=== PATIENT | male | born 1940 | race Caucasian/White ===

== ENCOUNTER 2017-08-09 17:23 | Emergency (ER) | payer MEDICARE, OTHER ==
[2017-08-09] MEDS ORDERED: PROPARACAINE 0.5% OPHTH DROPS 15 ML EACHEYE STA (18:01)
--- NOTE | 2017-08-09 18:01 | ED Physician Documentation ---
PD HPI OPHTHO - Stated complaint Stated Complaint: SPLINTER IN L EYELID - Chief complaint Chief Complaint: Wound - History obtained from History obtained from: Patient - History of Present Illness Timing - onset: Today Timing - details: Abrupt onset (he was grinding metal and a small piece hit lower eyelid, and he feels a small bump in eyelid (not eye itself) and sees a small black spot. Concerned about a splinter.) Location: Left Associated symptoms: FB sensation (of edge of lower eyelid.) Similar symptoms before: Has not had sx before Recently seen: Not recently seen Review of Systems Constitutional: denies: Fever, Chills Eyes: denies: Loss of vision, Decreased vision, Photophobia, Irritation PD PAST MEDICAL HISTORY - Past Medical History Past Medical History: No Cardiovascular: Coronary artery disease Respiratory: None Neuro: None Endocrine/Autoimmune: None GI: Colon polyps : Benign prostate hypertrophy Derm: None - Past Surgical History General: Appendectomy Ortho: Rotator cuff repair, Arthroscopic surgery Cardiovascular: CABG, Coronary stent - Present Medications Home Medications: Ambulatory Orders Medication Instructions Recorded Confirmed Clopidogrel [Plavix] 1 tab PO DAILY 08/09/17 08/09/17 Ezetimibe [Zetia] 1 tab PO DAILY 08/09/17 08/09/17 Finasteride 1 tab PO DAILY 08/09/17 08/09/17 Metoprolol Succinate [Toprol Xl] 1 tab PO DAILY 08/09/17 08/09/17 Pravastatin Sodium 1 tab PO DAILY 08/09/17 08/09/17 Tamsulosin [Flomax] 1 cap PO DAILY 08/09/17 08/09/17 - Allergies Allergies/Adverse Reactions: Allergies Allergy/AdvReac Type Severity Reaction Status Date / Time No Known Drug Allergies Allergy Verified 08/09/17 17:37 - Social History Does the pt smoke?: No Smoking Status: Former smoker Does the pt drink ETOH?: Yes Does the pt have substance abuse?: No - Immunizations Immunizations are current?: No Immunizations: TDAP >10years/unknown - POLST Patient has POLST: No PD ED PE NORMAL - Vitals Vital signs reviewed: Yes - General General: Alert and oriented X 3, No acute distress, Well developed/nourished PD ED PE EXPANDED - Eyes Eyes: PERRL, EOMI, Eyelid injury (there is small point of black/purple color with slightly raised bump feeling just 1-2 mm size in cnetral lower lid outer aspect below the lid margin. No FB in the conjunctival area itself. ) Results - Vitals Vitals: Oxygen O2 Source Room air PD MEDICAL DECISION MAKING - ED course Complexity details: considered differential (there was a small bump with dark under the skin of lower eyelid. Could be focal point hematoma from impact. Did not see break in skin per se. Pt concerned about small FB. So local anesth with lido and nicked the spot with point of scalpel tip. Some mild bleeding and then the colored spot gone. Did not see FB per se. I think it was a very point small hematoma. ), d/w patient Departure - Departure Disposition: 01 Home, Self Care Clinical Impression: Injury of eyelid Qualifiers: Encounter type: initial encounter Laterality: left Qualified Code(s): S09.93XA - Unspecified injury of face, initial encounter Condition: Stable Record reviewed to determine appropriate education?: Yes Instructions: ED Foreign Body Soft Tissue Removed Follow-Up: Alesia Damico MD [Primary Care Provider] - Comments: The small bump that was there may have been a very tiny blood blister from the impact or may have had a small foreign body there. It feels like it is gone at this point after unroofing the spot. Use some ointment or eyedrops to moisturize area a few times through the day. Recheck if signs of infection to the wound. Otherwise it should heal over in the next couple of days per Discharge Date/Time: 08/09/17 18:44
[2017-08-09 18:23] VITALS: BP 124/99
== END 2017-08-09 18:44 | disposition home or self-care (01) ==
LOC: ED 17:23
DX: S09.93XA Unspecified injury of face, initial encounter (principal); W22.8XXA Striking against or struck by other objects, initial encounter; R22.9 Localized swelling, mass and lump, unspecified; Z87.891 Personal history of nicotine dependence
CPT/HCPCS: 99282; 99283; J3490; 11740

== ENCOUNTER 2020-02-19 16:01 | Outpatient (CLI) | payer MEDICARE, OTHER ==
--- NOTE | 2020-02-19 17:04 | XRAY Report ---
PROCEDURE: Wrist 3 View RT INDICATIONS: UNSP INJURY OF RIGHT WRIST TECHNIQUE: 3 views of the wrist were acquired. COMPARISON: None FINDINGS: Bones: No fractures or dislocations. 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 Osteoarthritic changes also noted involving distal ra dioulnar articulation. No suspicious bony lesions. Scaphoid view: Scaphoid is intact. Soft tissues: No suspicious soft tissue calcifications. 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 No fracture or dislocation. Reviewed by: Juan Shields MD on 02/19/2020 5:02 PM PDT Approved by: Juan Shields MD on 02/19/2020 5:02 PM PDT Station ID: [id number]
== END 2020-02-19 16:02 | disposition home or self-care (01) ==
LOC: DI 16:01
PROVIDERS: ATTEND Internal Medicine
DX: M19.031 Primary osteoarthritis, right wrist (principal)

== ENCOUNTER 2020-08-23 18:48 | Emergency (ER) | payer MEDICARE, OTHER ==
--- NOTE | 2020-08-23 19:44 | ED Physician Documentation ---
History of Present Illness - Stated complaint Stated Complaint: RT FINGER LAC - Chief complaint Chief Complaint: Laceration - History obtained from History obtained from: Patient - History of Present Illness Timing: How many hours ago (3) Pain level max: 3 Pain level now: 3 - Additonal information Additional information: R index finger laceration while shucking oysters tonight. States he takes Plavix. Is continuing to have bleeding. Better with pressure, worse with movement Review of Systems Constitutional: denies: Fever PD PAST MEDICAL HISTORY - Past Medical History Past Medical History: Yes Cardiovascular: Coronary artery disease Respiratory: None Endocrine/Autoimmune: None GI: Colon polyps : Benign prostate hypertrophy Derm: None - Past Surgical History Past Surgical History: Yes General: Appendectomy Ortho: Rotator cuff repair, Arthroscopic surgery Cardiovascular: CABG, Coronary stent - Present Medications Home Medications: Ambulatory Orders Medication Instructions Recorded Confirmed Clopidogrel [Plavix] 1 tab PO DAILY 08/09/17 08/09/17 Ezetimibe [Zetia] 1 tab PO DAILY 08/09/17 08/09/17 Finasteride 1 tab PO DAILY 08/09/17 08/09/17 Metoprolol Succinate [Toprol Xl] 1 tab PO DAILY 08/09/17 08/09/17 Pravastatin Sodium 1 tab PO DAILY 08/09/17 08/09/17 Tamsulosin [Flomax] 1 cap PO DAILY 08/09/17 08/09/17 - Allergies Allergies/Adverse Reactions: Allergies Allergy/AdvReac Type Severity Reaction Status Date / Time No Known Drug Allergies Allergy Verified 08/23/20 18:51 - Social History Does the pt smoke?: No Smoking Status: Never smoker Does the pt drink ETOH?: Yes Does the pt have substance abuse?: No - Immunizations Immunizations are current?: No Immunizations: TDAP >10years/unknown - POLST Patient has POLST: No PD ED PE NORMAL - Vitals Vital signs reviewed: Yes - General General: Alert and oriented X 3, No acute distress - Derm Derm: Warm and dry - Neuro Neuro: Alert and oriented X 3 PD ED PE EXPANDED - Extremities KENNETH UE/Hands Visual: 1 - laceration (1cm, linear, NVI, no tendon or vascular injury) Results - Vitals Vitals: Vital Signs - 24 hr 08/23/20 08/23/20 08/23/20 18:51 19:25 20:11 Temperature 36.4 C L 36.8 C Heart Rate 68 60 Respiratory 19 17 19 Rate Blood Pressure 203/84 H 159/90 H O2 Saturation 99 100 Oxygen O2 Source Room air Procedures - Laceration (location) R index finger Length in cm: 1 Wound type: Linear, Superficial, Clean Neurovascular status: Sensory intact, Motor intact, Vascular intact Tendon involvement: Tendon intact Wound preparation: Irrigated copiously NS Skin layer closure: Dermabond (T ring system) Other: Patient tolerated well, No complications, Neurovascular intact, Dressing applied, Tetanus UTD PD MEDICAL DECISION MAKING - ED course Complexity details: considered differential, d/w patient ED course: Patient with a right finger laceration. This was repaired. Tolerated well. Tetanus up-to-date. Warnings of infection and instructions on wound care given at bedside. Also counseled on how to minimize scarring. Patient counseled regarding signs and symptoms for which I believe and urgent re-evaluation would be necessary. Patient with good understanding of and agreement to plan and is comfortable going home at this time This document was made in part using voice recognition software. While efforts are made to proofread this document, sound alike and grammatical errors may occur. Departure - Departure Disposition: 01 Home, Self Care Clinical Impression: Finger laceration Qualifiers: Encounter type: initial encounter Finger: index finger Damage to nail status: without damage Foreign body presence: without foreign body Laterality: right Qualified Code(s): S61.210A - Laceration without foreign body of right index finger without damage to nail, initial encounter Condition: Good Instructions: ED Laceration Hand Follow-Up: Alesia Damico MD [Primary Care Provider] - As Needed Comments: Keep the wound clean. Return if you notice redness, swelling or drainage from the wound. Do not apply ointment as this may dissolve the bandage Discharge Date/Time: 08/23/20 20:00
[2020-08-23 20:12] VITALS: BP 159/90
== END 2020-08-23 20:00 | disposition home or self-care (01) ==
LOC: ED 18:48
DX: S61.210A Laceration without foreign body of right index finger without damage to nail, initial encounter (principal); W26.0XXA Contact with knife, initial encounter; Y93.G3 Activity, cooking and baking; Z79.01 Long term (current) use of anticoagulants; I25.10 Atherosclerotic heart disease of native coronary artery without angina pectoris; Z95.1 Presence of aortocoronary bypass graft
CPT/HCPCS: 12001; 99281; 99282

== ENCOUNTER 2022-06-25 12:30 | Emergency (ER) | payer MEDICARE, OTHER ==
[2022-06-25 12:37] VITALS: BP 164/70
--- NOTE | 2022-06-25 13:54 | ED Physician Documentation ---
History of Present Illness - Stated complaint Stated Complaint: LT FINGER LAC - Chief complaint Chief Complaint: Laceration - History obtained from History obtained from: Patient - History of Present Illness Timing: Yesterday Pain level max: 0 Pain level now: 0 - Additonal information Additional information: 81-year-old male presents to the emergency department with a skin tear/laceration to the dorsum of the left index finger over the proximal phalanx occurred yesterday. Tetanus is up-to-date, last tetanus shot was 2 years ago. Patient is right-handed. He states that the wound is continuing to bleed today when he uses the finger. Nothing makes it better or worse. Patient is on Plavix. PD PAST MEDICAL HISTORY - Past Medical History Cardiovascular: Coronary artery disease Respiratory: None Endocrine/Autoimmune: None GI: Colon polyps : Benign prostate hypertrophy Derm: None - Past Surgical History Past Surgical History: Yes General: Appendectomy Ortho: Rotator cuff repair, Arthroscopic surgery Cardiovascular: CABG, Coronary stent - Present Medications Home Medications: Ambulatory Orders Medication Instructions Recorded Confirmed Clopidogrel [Plavix] 1 tab PO DAILY 08/09/17 08/09/17 Ezetimibe [Zetia] 1 tab PO DAILY 08/09/17 08/09/17 Finasteride 1 tab PO DAILY 08/09/17 08/09/17 Metoprolol Succinate [Toprol Xl] 1 tab PO DAILY 08/09/17 08/09/17 Pravastatin Sodium 1 tab PO DAILY 08/09/17 08/09/17 Tamsulosin [Flomax] 1 cap PO DAILY 08/09/17 08/09/17 - Allergies Allergies/Adverse Reactions: Allergies Allergy/AdvReac Type Severity Reaction Status Date / Time No Known Drug Allergies Allergy Verified 06/25/22 12:37 - Social History Does the pt smoke?: No Smoking Status: Never smoker Does the pt drink ETOH?: Yes Does the pt have substance abuse?: No - Immunizations Immunizations are current?: No Immunizations: TDAP >10years/unknown - POLST Patient has POLST: No PD ED PE NORMAL - Vitals Vital signs reviewed: Yes - General General: Alert and oriented X 3 - Derm Derm: Warm and dry - Extremities Extremities: Other (L index finger - 1 cm, linear skin tear to the dorsum of the proximal phalanx. Superficial. No active bleeding. Neurovascular intact. Tendon intact.) - Neuro Neuro: Alert and oriented X 3 Results - Vitals Vitals: Vital Signs - 24 hr 06/25/22 12:34 Temperature 36.4 C L Heart Rate 67 Respiratory 16 Rate Blood Pressure 164/70 H O2 Saturation 99 Oxygen O2 Source Room air PD Medical Decision Making - ED course Complexity details: considered differential, d/w patient ED course: 81-year-old male with a small skin tear to the dorsum of the left index finger. Dermabond was applied over the area. No active bleeding. No indication for suture repair. Warnings of infection and instructions on wound care given at bedside. Patient counseled regarding signs and symptoms for which I believe and urgent re-evaluation would be necessary. Patient with good understanding of and agreement to plan and is comfortable going home at this time This document was made in part using voice recognition software. While efforts are made to proofread this document, sound alike and grammatical errors may occur. Departure - Departure Disposition: 01 Home, Self Care Clinical Impression: Finger laceration Qualifiers: Encounter type: initial encounter Finger: index finger Damage to nail status: without damage Foreign body presence: without foreign body Laterality: left Qualified Code(s): S61.211A - Laceration without foreign body of left index finger without damage to nail, initial encounter Condition: Good Instructions: ED Laceration Ext Skin Glue Follow-Up: Alesia Damico MD [Primary Care Provider] - As Needed Comments: Keep the wound clean. Return for redness, swelling or drainage from the wound. Do not apply any ointment as this may dissolve the glue. The glue will fall off on its own. Discharge Date/Time: 06/25/22 14:02
== END 2022-06-25 14:02 | disposition home or self-care (01) ==
LOC: ED 12:30
DX: S61.211A Laceration without foreign body of left index finger without damage to nail, initial encounter (principal); X58.XXXA Exposure to other specified factors, initial encounter
CPT/HCPCS: 99281; 99282

== ENCOUNTER 2023-01-31 17:29 | Emergency (ER) | payer MEDICARE, OTHER ==
[2023-01-31 17:52] VITALS: BP 150/66; O2SAT 99
--- NOTE | 2023-01-31 19:07 | ED Physician Documentation ---
PD HPI UPPER EXT INJURY - Stated complaint Stated Complaint: LT ELBOW INJ - Chief complaint Chief Complaint: Laceration - History obtained from History obtained from: Patient - History of Present Illness Location: Left (82-year-old gentleman on Plavix, up-to-date on tetanus had a trip and fall in the garden today and has an abrasion on the left elbow which is persistently bleeding.) PD PAST MEDICAL HISTORY - Past Medical History Cardiovascular: Coronary artery disease Respiratory: None Endocrine/Autoimmune: None GI: Colon polyps : Benign prostate hypertrophy Derm: None - Past Surgical History Past Surgical History: Yes General: Appendectomy Ortho: Rotator cuff repair, Arthroscopic surgery Cardiovascular: CABG, Coronary stent - Present Medications Home Medications: Ambulatory Orders Medication Instructions Recorded Confirmed Clopidogrel [Plavix] 1 tab PO DAILY 08/09/17 08/09/17 Ezetimibe [Zetia] 1 tab PO DAILY 08/09/17 08/09/17 Finasteride 1 tab PO DAILY 08/09/17 08/09/17 Metoprolol Succinate [Toprol Xl] 1 tab PO DAILY 08/09/17 08/09/17 Pravastatin Sodium 1 tab PO DAILY 08/09/17 08/09/17 Tamsulosin [Flomax] 1 cap PO DAILY 08/09/17 08/09/17 - Allergies Allergies/Adverse Reactions: Allergies Allergy/AdvReac Type Severity Reaction Status Date / Time No Known Drug Allergies Allergy Verified 01/31/23 17:48 - Social History Does the pt smoke?: No Smoking Status: Never smoker Does the pt drink ETOH?: Yes Does the pt have substance abuse?: No - Immunizations Immunizations are current?: No Immunizations: TDAP >10years/unknown - POLST Patient has POLST: No PD ED PE NORMAL - Vitals Vital signs reviewed: Yes - General General: Alert and oriented X 3, No acute distress - Extremities Extremities: Other (Dime size abrasion on the left elbow with slow bleeding ooze. No limited range of motion or bony tenderness to the elbow.) - Neuro Neuro: Alert and oriented X 3, Normal speech Results - Vitals Vitals: Vital Signs - 24 hr 01/31/23 17:49 Temperature 36.6 C Heart Rate 62 Respiratory 16 Rate Blood Pressure 150/66 H O2 Saturation 99 Oxygen O2 Source Room air Procedures - General procedure General procedure: The abrasion was irrigated and then covered with Dermabond for hemostasis. Departure - Departure Disposition: Home, Self Care Clinical Impression: Abrasion of left elbow Condition: Good Record reviewed to determine appropriate education?: Yes Instructions: ED Laceration Ext Skin Glue
== END 2023-01-31 19:11 | disposition home or self-care (01) ==
LOC: ED 17:29
DX: S50.312A Abrasion of left elbow, initial encounter (principal); W01.0XXA Fall on same level from slipping, tripping and stumbling without subsequent striking against object, initial encounter; Z79.02 Long term (current) use of antithrombotics/antiplatelets
CPT/HCPCS: 99281; 99282

== ENCOUNTER 2023-02-03 19:32 | Emergency (ER) | payer MEDICARE, OTHER ==
--- NOTE | 2023-02-03 22:44 | ED Physician Documentation ---
PD HPI SKIN - Stated complaint Stated Complaint: LT ARM LAC - Chief complaint Chief Complaint: Laceration - History obtained from History obtained from: Patient - Additional information Additional information: The patient comes to the emergency department chief complaint of blood leaking from under skin glue on left arm. He states that he was seen a few days ago after sustaining an abrasion to his left forearm that would not stop bleeding. He is on Plavix and ultimately, his ED provider placed a patch of skin glue over the abrasion to help stop the bleeding. He states this has been fairly effe ctive, but notes that the edges of the glue are starting to peel back and he has had a little bit of bloody residue leaking from underneath. He just wants to know if there is anything else he can or should do. No other complaints at this time. PD PAST MEDICAL HISTORY - Past Medical History Past Medical History: Yes Cardiovascular: Coronary artery disease Respiratory: None Endocrine/Autoimmune: None GI: Colon polyps : Benign prostate hypertrophy Derm: None - Past Surgical History Past Surgical History: Yes General: Appendectomy Ortho: Rotator cuff repair, Arthroscopic surgery Cardiovascular: CABG, Coronary stent - Present Medications Home Medications: Ambulatory Orders Medication Instructions Recorded Confirmed Clopidogrel [Plavix] 1 tab PO DAILY 08/09/17 02/03/23 Ezetimibe [Zetia] 1 tab PO DAILY 08/09/17 02/03/23 Finasteride 1 tab PO DAILY 08/09/17 02/03/23 Metoprolol Succinate [Toprol Xl] 1 tab PO DAILY 08/09/17 02/03/23 Pravastatin Sodium 1 tab PO DAILY 08/09/17 02/03/23 Tamsulosin [Flomax] 1 cap PO DAILY 08/09/17 02/03/23 - Allergies Allergies/Adverse Reactions: Allergies Allergy/AdvReac Type Severity Reaction Status Date / Time No Known Drug Allergies Allergy Verified 02/03/23 19:37 - Social History Does the pt smoke?: No Smoking Status: Never smoker Does the pt drink ETOH?: Yes Does the pt have substance abuse?: No - Immunizations Immunizations are current?: Yes Immunizations: TDAP >10years/unknown - POLST Patient has POLST: No PD ED PE NORMAL - Vitals Vital signs reviewed: Yes - General General: Alert and oriented X 3, No acute distress - HEENT HEENT: Atraumatic, Moist mucous membranes - Neck Neck: Supple, no meningeal sign - Respiratory Respiratory: No respiratory distress - Derm Derm: Normal color, Warm and dry, No rash, Other (Small abrasion over dorsum of left forearm, with approximately 3 cm in diameter mostly intact patch of dried Dermabond. There is minimal bloody residue beneath the glue that has tracked to the edge of the glue, which is peeling up a little. No other wounds or skin lesions. No induration, erythema) - Extremities Extremities: No deformity - Neuro Neuro: Alert and oriented X 3 - Psych Psych: Normal mood, Normal affect Results - Vitals Vitals: Oxygen O2 Source Room air PD Medical Decision Making - ED course Complexity details: considered differential, d/w patient ED course: I discussed with the patient that it is expected that the glue will begin to peel after if he wishes he can just clip the peeling ends off with nail clippers. There is minimal bleeding occurring, but this patient seems very concerned about this and has requested a dressing to be placed over the area. We have done this, though I have discussed with the patient that he does need to allow the wound ultimately to be open areas that can actually heal. We have discussed management of the wound at home and the usual locations for follow-up and return. Departure - Departure Disposition: 01 Home, Self Care Clinical Impression: Abrasion Condition: Stable Instructions: ED Abrasion Forms: PCP List Discharge Date/Time: 02/03/23 22:50
[2023-02-04 11:00] VITALS: BP 170/60; O2SAT 100
== END 2023-02-03 22:50 | disposition home or self-care (01) ==
LOC: ED 19:32
DX: S50.812A Abrasion of left forearm, initial encounter (principal); X58.XXXA Exposure to other specified factors, initial encounter; Z79.01 Long term (current) use of anticoagulants; Z95.1 Presence of aortocoronary bypass graft
CPT/HCPCS: 99281; 99283

== ENCOUNTER 2023-05-07 12:49 | Outpatient (CLI) | payer MEDICARE, OTHER ==
--- NOTE | 2023-05-07 16:44 | XRAY Report ---
PROCEDURE: Foot 3 View LT INDICATIONS: LEFT FOOT PAIN TECHNIQUE: 3 views of the foot were acquired. COMPARISON: None. FINDINGS: Bones: No acute fractures or dislocations. No suspicious bony lesions. Mild osteoarthrosis. Plantar calcaneal enthesophyte is present. Soft tissues: No suspicious soft tissue calcifications or masses. IMPRESSION: No acute osseous abnormality. If there is clinical concern or persistent symptoms, additional imaging such as repeat radiographs or advanced imaging (e.g. CT, MRI) may be helpful for further evaluation. Reviewed by: Jalil Erazo MD on 05/07/2023 4:43 PM PST Approved by: Jalil Erazo MD on 05/07/2023 4:43 PM PST Station ID: [id number]
== END 2023-05-07 12:50 | disposition home or self-care (01) ==
LOC: DI 12:49
PROVIDERS: ATTEND Internal Medicine
DX: M79.672 Pain in left foot (principal)

== ENCOUNTER 2023-08-16 16:58 | Emergency (ER) | payer MEDICARE, OTHER ==
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
--- NOTE | 2023-08-16 17:42 | XRAY Report ---
PROCEDURE: Hand 3+V BL INDICATIONS: GLF, right pinky deformity TECHNIQUE: 3 views of the hand(s) acquired. COMPARISON: None. FINDINGS: Bones: Diffuse appearance of prominent IP and first CMC arthritic change. Soft tissues: No suspicious soft tissue calcifications or masses. IMPRESSION: Extensive arthritic changes. No visualized acute fracture or dislocation. However, occult injury cannot be excluded. Recommend mahad rt interval imaging follow-up in 7-10 days as clinically indicated for additional evaluation. Reviewed by: Elisabeth Antonio MD on 08/16/2023 5:41 PM PDT Approved by: Elisabeth Antonio MD on 08/16/2023 5:41 PM PDT Station ID: [id number]
[2023-08-16 18:28] LABS: BASOPHILS % (AUTO) 0.2 %; EOSINOPHILS % (AUTO) 0.1 %; HCT - HEMATOCRIT 41.4 % (42.0-52.0); HGB - HEMOGLOBIN 13.8 g/dL (14.0-18.0); LYMPHOCYTES % (AUTO) 6.9 %; MEAN CORPUSCULAR HGB CONC 33.3 g/dL (32.0-36.0); MEAN PLATELET VOLUME 9.9 fL (7.4-11.4); MONOCYTES # (AUTO) 0.7 10^3/uL (0.0-1.0); MONOCYTES % (AUTO) 4.8 %; NEUTROPHILS # (AUTO) 12.7 10^3/uL (1.5-6.6); NEUTROPHILS % (AUTO) 87.7 %; PLT - PLATELET COUNT 228 10^3/uL (130-450); RED BLOOD COUNT 4.45 10^6/uL (4.70-6.10); RED CELL DISTRIBUTION WIDTH 12.8 % (12.0-15.0); WHITE BLOOD COUNT 14.4 x10^3/uL (4.8-10.8)
[2023-08-16 18:50] LABS: ALBUMIN 4.4 g/dL (3.2-5.5); ALBUMIN/GLOBULIN RATIO 1.8 (1.0-2.2); BILIRUBIN,TOTAL 0.8 mg/dL (0.2-1.0); CALCIUM 9.6 mg/dL (8.5-10.3); CREATININE 0.8 mg/dL (0.6-1.3); POTASSIUM 4.1 mmol/L (3.5-4.5); TOTAL PROTEIN 6.9 g/dL (6.4-8.9)
[2023-08-16] MEDS: ACETAMINOPHEN 325 MG TABLET PO STA (18:50)
[2023-08-16] MEDS: oxyCODONE 5 MG TABLET PO STA (18:50)
[2023-08-16] MEDS: LIDOCAINE-EPINEPH-TETRACAINE 3 ML SYRINGE TOP STA (19:27)
[2023-08-16] MEDS: TRANEXAMIC ACID 1,000 MG/10 ML VIAL NAS STA (19:27)
[2023-08-16] MEDS: BUFFERED LIDOCAINE 10 ML SYRINGE SUBQ STA (19:27)
--- NOTE | 2023-08-16 20:44 | ED Physician Documentation ---
PD HPI HEAD INJURY - Stated complaint Stated Complaint: FALL/HEAD LAC/ARM LAC - Chief complaint Chief Complaint: Trauma Hd/Nk - Additional information Additional information: 83-year-old male on Plavix presents emergency department after sustaining head injury after ground-level fall. Patient says that this was strictly mechanical he lost his footing as he was walking in [place] somehow tripped and fell onto his right face. He also has deep lacerations to the top of both of his hands with significant bruising to the left volar aspect of his hand. Patient denies any loss of consciousness and denies any neck pain. After he fell and hit his head this was in [place] a bystander offered to call 911 for him but patient adamantly declined and [facility] himself back to [facility] because he did not want to present to the emergency department in [place] for further evaluation. He denies any dizziness any nausea vomiting. PD PAST MEDICAL HISTORY - Past Medical History Past Medical History: Yes Cardiovascular: Coronary artery disease Respiratory: None Endocrine/Autoimmune: None GI: Colon polyps : Benign prostate hypertrophy Derm: None - Past Surgical History Past Surgical History: Yes General: Appendectomy Ortho: Rotator cuff repair, Arthroscopic surgery Cardiovascular: CABG, Coronary stent - Present Medications Home Medications: Ambulatory Orders Medication Instructions Recorded Confirmed Clopidogrel [Plavix] 1 tab PO DAILY 08/09/17 08/16/23 Ezetimibe [Zetia] 1 tab PO DAILY 08/09/17 08/16/23 Finasteride 1 tab PO DAILY 08/09/17 08/16/23 Metoprolol Succinate [Toprol Xl] 1 tab PO DAILY 08/09/17 08/16/23 Pravastatin Sodium 1 tab PO DAILY 08/09/17 08/16/23 Tamsulosin [Flomax] 1 cap PO DAILY 08/09/17 08/16/23 oxyCODONE [Roxicodone] 5 mg PO ONCE PRN #10 tablet 08/16/23 - Allergies Allergies/Adverse Reactions: Allergies Allergy/AdvReac Type Severity Reaction Status Date / Time No Known Drug Allergies Allergy Verified 02/03/23 19:37 - Social History Does the pt smoke?: No Smoking Status: Never smoker Does the pt drink ETOH?: Yes Does the pt have substance abuse?: No - Immunizations Immunizations are current?: Yes Immunizations: TDAP >10years/unknown - POLST Patient has POLST: No PD ED PE NORMAL - Vitals Vital signs reviewed: Yes - General General: Alert and oriented X 3, Well developed/nourished - HEENT HEENT: PERRL, EOMI, Moist mucous membranes, Dentition benign, Other (right periorbital hematom) - Neck Neck: C-Spine cleared by NEXUS criteria - Cardiac Cardiac: RRR, No gallop, Strong equal pulses - Respiratory Respiratory: No respiratory distress, Clear bilaterally - Back Back: No CVA TTP, No spinal TTP - Extremities Extremities: Other - Neuro Neuro: Alert and oriented X 3, rectifier operator 2-12 intact, No motor deficit, No sensory deficit, Normal speech Eye Opening: Spontaneous Motor: Obeys Commands Verbal: Oriented GCS Score: 15 - Psych Psych: Normal mood, Normal affect - Free text exam Free text exam: Left Hand: Significant swelling and bruising to the volar aspect with multiple lacerations and large abrasion especially to the ulnar aspect of his handMeasuring about 7 to 8 cm in length. Right hand: Significant swelling and bruising to the volar aspect with small laceration to the ulnar aspect of his hand that are about 1 cm long. Results - Vitals Vitals: Vital Signs - 24 hr 08/16/23 08/16/23 08/16/23 17:36 18:00 18:05 Temperature 36.2 C L Heart Rate 80 78 78 Respiratory 16 16 20 Rate Blood Pressure 143/64 H 136/71 H 136/71 H O2 Saturation 100 97 97 08/16/23 08/16/23 08/16/23 18:30 19:00 20:15 Temperature Heart Rate 79 84 67 Respiratory 16 16 Rate Blood Pressure 153/74 H 97/53 L O2 Saturation 97 97 95 08/16/23 08/16/23 20:30 21:00 Temperature Heart Rate 51 L 66 Respiratory 20 18 Rate Blood Pressure 97/66 O2 Saturation 94 Oxygen O2 Source Room air - Labs Labs: Laboratory Tests 08/16/23 08/16/23 18:20 18:20 WBC 14.4 H RBC 4.45 L Hgb 13.8 L Hct 41.4 L MCV 93.0 MCH 31.0 MCHC 33.3 RDW 12.8 Plt Count 228 MPV 9.9 Neut # (Auto) 12.7 H Lymph # (Auto) 1.0 L Morton # (Auto) 0.7 Eos # (Auto) 0.0 Baso # (Auto) 0.0 Absolute Nucleated RBC 0.00 Nucleated RBC % 0.0 Sodium 127 L Potassium 4.1 Chloride 95 L Carbon Dioxide 25 Anion Gap 7.0 BUN 10 Creatinine 0.8 Estimated GFR (MDRD) 93 Glucose 106 H Calcium 9.6 Total Bilirubin 0.8 AST 30 ALT 25 Alkaline Phosphatase 43 Total Protein 6.9 Albumin 4.4 Globulin 2.5 Albumin/Globulin Ratio 1.8 - Rads (name of study) CT head without contrast Relevant Findings:: Final report received, EMP independent interpretation of test, Other (No intracranial hemorrhages or abnormalities) Bilateral hand x-rays Relevant Findings:: Final report received, EMP independent interpretation of test, Other (Obvious arthritic changes no dislocations no fractures.) Procedures - Laceration (location) left hand Length in cm: 8 (left volar hand) Wound type: Curved, Irregular, Flap, Superficial, Clean Neurovascular status: Sensory intact, Motor intact Tendon involvement: Tendon intact Anesthesia: LET, Lidocaine 1% Wound preparation: Hibiclens, Irrigated copiously NS, Wound explored, Multiple flaps aligned Skin layer closure: Nylon, Dermabond, Size #-0 - enter number (5-0), Sutures - enter # (6) Other: Patient tolerated well, Neurovascular intact, Dressing applied, Tetanus UTD PD Medical Decision Making - ED course ED course: 83-year-old male presents emergency department after a ground-level fall falling onto his face on concrete. X-rays of both hands are complete no acute fractures or abnormalities are visualized, CT of his head is also complete which did not reveal any intracranial hemorrhages or also any other intracranial emergencies. He does have a significant right orbital hematoma, Intraocular pressure of the right eye is 19 he does not have any fluorescein uptake no corneal abrasions of the right eye not concerned of any ocular emergencies in that regard. His left hand had multiple skin tears, most of them were repaired with Mepitel after soaking in Hibiclens and water the largest of which sutures were placed see procedure note for further details. Overall the wound was loosely repaired with stitches. The flap of skin can cover the very raw and open portion of his hand. A ABD pad was placed over the Mepitel of his left hand to help with bleeding and oozing and Coban was placed over that. Patient was told to follow- up with his primary care provider in 3 days for further evaluation given the fact that he is on Plavix we had a hard time controlling his bleeding so I told him to leave the dressing in place. He is up-to-date with his tetanus shot. He was taught signs symptoms of infection to watch out for. The right hand had superficial abrasions that were cleansed with Hibiclens and water a very small amount of Dermabond was placed on 1 abrasion of his right hand. He also had some superficial abrasions that were having a hard time with controlling the bleeding inferior to the nose. Dermabond was placed to those and bleeding was controlled of those as well. Patient was told to follow-up with primary care provider and given strict ER return precautions. I am prescribing a short course of short-acting opioid pain medication for this patient. 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 I have discussed that the opioids are for short term therapy only, and will not be refilled from the ED. Departure - Departure Disposition: 01 Home, Self Care Clinical Impression: Hematoma of eyelid, Hyponatremia Head injury Qualifiers: Encounter type: initial encounter Qualified Code(s): S09.90XA - Unspecified injury of head, initial encounter Abrasion hand Qualifiers: Encounter type: initial encounter Laterality: unspecified laterality Qualified Code(s): S60.519A - Abrasion of unspecified hand, initial encounter Laceration of hand Qualifiers: Encounter type: initial encounter Foreign body presence: without foreign body Laterality: right Qualified Code(s): S61.411A - Laceration without foreign body of right hand, initial encounter Instructions: ED Laceration All Prescriptions: oxyCODONE [Roxicodone] 5 mg PO ONCE PRN #10 tablet PRN Reason: Pain >8 Comments: Come back for any signs of infection which would include: Redness, swelling, drainage, increased pain, or fevers. Keep your left hand covered for at least three days to help with wound healing.The Mepitel that I have placed over the wounds that do not have the sutures and can stay on your hand for total of 14 days if you do not have any signs or symptoms of infection after removing the bandage in 3 days I would encourage you to keep the Mepitel on the portion of your hand that does not have the stitches. Please keep your stitches in for at least a total of 10 to 14 days unless your primary care provider suggest something other than that.Wishing you a speedy recovery. If you are develop any nausea vomiting, altered mental status severe lethargy or any other neurological concerns please come back to the emergency department for further evaluation. I am prescribing a short course of narcotic pain medication for you. These are potentially dangerous and addictive medications that should be used carefully. These medications may constipate you. Take an xuhx-aai-[id number] stool softener (docusate) twice daily with plenty of water while taking these medications. If you go 24 hours without a bowel movement, take [id number] miralax, per package instructions. Do not drink or drive while taking these medications. If you received narcotic or sedating medications while in the emergency department, do not drive for 24 hours. Store this medication in a safe, secure place and out of reach of children. It is a violation of federal law to give or sell this medication to another person or to use in a manner other than prescribed. The ED will not refill narcotic prescriptions, including prescriptions lost or stolen. To dispose of unwanted medications: 1. [facility] at [address] in [place] has a medication drop box. They accept prescription medications (in pill form) Wednesday through Wednesday 9:00 a.m. to 5:00 p.m. 2. The [facility] accepts prescription medications (in pill form only) for disposal year round. Call for more information. 3. Contact the [facility] for the next [facility] sponsored prescription drug collection event. , [phone], or [phone]; Note that many narcotic pain relievers also contain Tylenol/acetaminophen. Please ensure that your total dose of acetaminophen from all sources does not exceed 3 g (3000 mg) per day. Forms: PCP List Discharge Date/Time: 08/16/23 21:28
[2023-08-16] MEDS: PROPARACAINE 0.5% OPHTH DROPS 15 ML RIGHTEYE STA (21:03)
[2023-08-16] MEDS: oxyCODONE/ACET 5/325 Prepack 4 PO STA (21:26)
[2023-08-16 21:37] VITALS: BP 97/66; O2SAT 94
== END 2023-08-16 21:28 | disposition home or self-care (01) ==
LOC: ED 16:58
DX: S61.411A Laceration without foreign body of right hand, initial encounter (principal); S61.412A Laceration without foreign body of left hand, initial encounter; S00.11XA Contusion of right eyelid and periocular area, initial encounter; S60.511A Abrasion of right hand, initial encounter; S00.31XA Abrasion of nose, initial encounter; W01.0XXA Fall on same level from slipping, tripping and stumbling without subsequent striking against object, initial encounter; E87.1 Hypo-osmolality and hyponatremia; I25.10 Atherosclerotic heart disease of native coronary artery without angina pectoris; N40.0 Benign prostatic hyperplasia without lower urinary tract symptoms; Z86.010 Personal history of colon polyps; Z95.1 Presence of aortocoronary bypass graft; Z79.02 Long term (current) use of antithrombotics/antiplatelets; Z79.899 Other long term (current) drug therapy
CPT/HCPCS: 12004; 36415; 70450; 73130; 80053; 85025; 99284; A9270; J3490

== ENCOUNTER 2023-08-17 18:09 | Emergency (ER) | payer MEDICARE, OTHER ==
[2023-08-17 18:22] VITALS: O2SAT 98
[2023-08-17] MEDS: TRANEXAMIC ACID 1,000 MG/10 ML VIAL NAS STA (20:31)
[2023-08-17] MEDS: LIDOCAINE-EPINEPH-TETRACAINE 3 ML SYRINGE TOP STA (20:31)
--- NOTE | 2023-08-17 20:47 | ED Physician Documentation ---
PD HPI LOWER EXT INJURY - Stated complaint Stated Complaint: STITCHES BLEEDING - Chief complaint Chief Complaint: Ext Problem - Additional information Additional information: 83-year-old male presents emergency department for oozing and bleeding of his left hand. Patient was here yesterday after experiencing a ground-level fall he is on Plavix bleeding was difficult to get controlled but it was well-controlled after receiving some topical transonic acid in combination with lidocaine and epinephrine gel. It was sutured yesterday and a pressure dressing with an ABD pad was applied yesterday but he was noticing some shadowing and bleeding coming from his dressing today around 1430 after he woke up from his nap. He said that he has been very persistent about keeping elevated above his heart and he did not take his Plavix today. He denies any dizziness nausea vomiting. PD PAST MEDICAL HISTORY - Past Medical History Cardiovascular: Coronary artery disease Respiratory: None Endocrine/Autoimmune: None GI: Colon polyps : Benign prostate hypertrophy Derm: None - Past Surgical History Past Surgical History: Yes General: Appendectomy Ortho: Rotator cuff repair, Arthroscopic surgery Cardiovascular: CABG, Coronary stent - Present Medications Home Medications: Ambulatory Orders Medication Instructions Recorded Confirmed Clopidogrel [Plavix] 1 tab PO DAILY 08/09/17 08/17/23 Ezetimibe [Zetia] 1 tab PO DAILY 08/09/17 08/17/23 Finasteride 1 tab PO DAILY 08/09/17 08/17/23 Metoprolol Succinate [Toprol Xl] 1 tab PO DAILY 08/09/17 08/17/23 Pravastatin Sodium 1 tab PO DAILY 08/09/17 08/17/23 Tamsulosin [Flomax] 1 cap PO DAILY 08/09/17 08/17/23 oxyCODONE [Roxicodone] 5 mg PO ONCE PRN #10 tablet 08/16/23 08/17/23 Bacitracin Zinc 1 applic TOP DAILY #28.4 gm 08/17/23 Ofloxacin 0.3% Ophth Drops 2 drops EACHEYE QID #5 ml 08/17/23 [Ocuflox 0.3% Ophth Drops] cephALEXin [Keflex] 500 mg PO Q6H 3 Days #12 cap 08/17/23 - Allergies Allergies/Adverse Reactions: Allergies Allergy/AdvReac Type Severity Reaction Status Date / Time No Known Drug Allergies Allergy Verified 08/30/23 19:37 - Social History Does the pt smoke?: No Smoking Status: Never smoker Does the pt drink ETOH?: Yes Does the pt have substance abuse?: No - Immunizations Immunizations are current?: Yes Immunizations: TDAP >10years/unknown - POLST Patient has POLST: No PD ED PE NORMAL - Vitals Vital signs reviewed: Yes - General General: Alert and oriented X 3, No acute distress, Well developed/nourished - HEENT HEENT: Other (Right eye hematoma with purulent drainage coming from both corners if theye) - Derm Derm: Other - Free text exam Free text exam: Multiple bruises throughout body from ground-level fall from yesterday. Right eye hematoma. Right hand swelling and bruising. Left hand multiple abrasions to the volar aspect. Oozing bleeding to the top of left hand. Results - Vitals Vitals: Vital Signs - 24 hr 08/17/23 08/17/23 18:15 21:36 Temperature 36.8 C Heart Rate 105 H 70 Respiratory 19 18 Rate Blood Pressure 135/79 H 151/81 H O2 Saturation 98 98 Oxygen O2 Source Room air PD Medical Decision Making - ED course ED course: 83-year-old male presents emergency department for bleeding of the left hand this is injury was caused from ground-level fall that happened yesterday. He noticed some shadowing on the gauze of the left hand that was placed yesterday. Gauze and dressing was removed we were able to get oozing and bleeding to stop with some topical TXA combined with topical lidocaine epinephrine. Wound was cleansed and Mepitel was lower placed on sites that needed it. Over the Mepitel a small layer of bacitracin was placed and nonadherent gauze was placed over that with some bulky gauze dressing and netting over that. Patient was taught how to do this dressing change at home with a [id number] direction and told to follow-up with primary care provider for signs and symptoms of infection. Patient said that he was worried about possible infection would like to be placed on antibiotics as he is prone to infections. He is placed on Keflex. Patient also had some mild purulent drainage from his right eye which is where he has the periorbital hematoma. This only has gone down significantly but we went ahead and sent a prescription ofloxacin to his preferred pharmacy to also start with antibiotic drops to his right eye as well. Departure - Departure Disposition: 01 Home, Self Care Clinical Impression: Bleeding from wound Instructions: Wound Care Prescriptions: Bacitracin Zinc 1 applic TOP DAILY #28.4 gm cephALEXin [Keflex] 500 mg PO Q6H 3 Days #12 cap Ofloxacin 0.3% Ophth Drops [Ocuflox 0.3% Ophth Drops] 2 drops EACHEYE QID #5 ml Comments: Thank you for trusting us with your care. We have given you your first dose of antibiotics per your request here in the emergency department you will take this 4 times a day for the next 3 days. I have also sent a prescription to your pharmacy for eyedrops he will take this twice a day 4 times a day for a total of 5 days. I have also sent a prescription of bacitracin this you can buy [id number] but I went ahead and sent the prescription to the pharmacy per your request. In regards to your wound management because you are not able to get in with your primary care provider until Wednesday I fully believe with the [id number] directions will be able to manage this wound at home on your own. 1. Gently remove dressing, do not remove the Mepitel, the clear plastic looking dressing directly over your wounds 2. Inspect wound for signs and symptoms of infection which include drainage that is yellow/green, severe pain, redness and swelling (although this will be hard to tell with the bruising) fevers or chills. 3. Apply a very thin layer of bacitracin over the wounds 4. Apply the nonadherent dressing (the green and white packaging) directly over the wound 5. If bleeding seems to have resolved you can leave this as is and apply the white stretching netting over the nonadherent dressing 6. If you are still noticing some oozing bleeding then apply bulky dry gauze (this is in the square plastic container) over top the nonadherent gauze to help with gentle pressure then apply the white stretching adding over that. If you feel like you are having a hard time managing these dressing changes you can report to urgent care which is across the street. Wishing you a speedy recovery. Forms: PCP List Discharge Date/Time: 08/17/23 21:45
[2023-08-17] MEDS: cephALEXin 250 MG CAPSULE PO STA (21:28)
[2023-08-17] MEDS ORDERED: cephALEXin 250 MG CAPSULE PO ONE (21:32)
[2023-08-17] MEDS ORDERED: CEPHALEXIN 250 MG Prepack 8 CAP BOTTLE PO ONE (21:40)
[2023-08-17] MEDS: CEPHALEXIN 250 MG Prepack 8 CAP BOTTLE PO STA (21:41)
[2023-08-17 21:43] VITALS: BP 151/81
== END 2023-08-17 21:45 | disposition home or self-care (01) ==
LOC: ED 18:09
DX: S61.412D Laceration without foreign body of left hand, subsequent encounter (principal); W01.0XXD Fall on same level from slipping, tripping and stumbling without subsequent striking against object, subsequent encounter; I25.10 Atherosclerotic heart disease of native coronary artery without angina pectoris; Z95.5 Presence of coronary angioplasty implant and graft; N40.0 Benign prostatic hyperplasia without lower urinary tract symptoms; Z86.010 Personal history of colon polyps; Z79.02 Long term (current) use of antithrombotics/antiplatelets; Z79.899 Other long term (current) drug therapy
CPT/HCPCS: 99282; 99283; A9270

== ENCOUNTER 2023-08-27 14:35 | Emergency (ER) | payer MEDICARE, OTHER ==
[2023-08-27 14:55] VITALS: O2SAT 100
--- NOTE | 2023-08-27 15:11 | ED Physician Documentation ---
PD HPI WOUND RECHECK - Stated complaint Stated Complaint: LT HAND WOUND - Chief complaint Chief Complaint: Wound - Histroy obtained from History obtained from: Patient - Additional information Additional information: 11 days ago he fell. There were multiple injuries but apropos to the current visit he had a large skin tear on the dorsum of the left hand. He was up-to-date on tetanus and was put on 3 days of prophylactic Keflex and the wound was closed. Returns today for wound care and concern for wound infection. PD PAST MEDICAL HISTORY - Past Medical History Past Medical History: Yes Cardiovascular: Coronary artery disease Respiratory: None Endocrine/Autoimmune: None GI: Colon polyps : Benign prostate hypertrophy Derm: None - Past Surgical History Past Surgical History: Yes General: Appendectomy Ortho: Rotator cuff repair, Arthroscopic surgery Cardiovascular: CABG, Coronary stent - Present Medications Home Medications: Ambulatory Orders Medication Instructions Recorded Confirmed Clopidogrel [Plavix] 1 tab PO DAILY 08/09/17 08/17/23 Ezetimibe [Zetia] 1 tab PO DAILY 08/09/17 08/17/23 Finasteride 1 tab PO DAILY 08/09/17 08/17/23 Metoprolol Succinate [Toprol Xl] 1 tab PO DAILY 08/09/17 08/17/23 Pravastatin Sodium 1 tab PO DAILY 08/09/17 08/17/23 Tamsulosin [Flomax] 1 cap PO DAILY 08/09/17 08/17/23 oxyCODONE [Roxicodone] 5 mg PO ONCE PRN #10 tablet 08/16/23 08/17/23 Bacitracin Zinc 1 applic TOP DAILY #28.4 gm 08/17/23 Ofloxacin 0.3% Ophth Drops 2 drops EACHEYE QID #5 ml 08/17/23 [Ocuflox 0.3% Ophth Drops] cephALEXin [Keflex] 500 mg PO Q6H 3 Days #12 cap 08/17/23 Doxycycline [Vibramycin] 100 mg PO BID #20 tablet 08/27/23 - Allergies Allergies/Adverse Reactions: Allergies Allergy/AdvReac Type Severity Reaction Status Date / Time No Known Drug Allergies Allergy Verified 08/27/23 14:51 - Social History Does the pt smoke?: No Smoking Status: Never smoker Does the pt drink ETOH?: Yes Does the pt have substance abuse?: No - Immunizations Immunizations are current?: Yes Immunizations: TDAP >10years/unknown - POLST Patient has POLST: No PD ED PE NORMAL - Vitals Vital signs reviewed: Yes - General General: Alert and oriented X 3, No acute distress - Extremities Extremities: Other (There is a large sutured wound over the dorsum of the left hand with mild purulent drainage and cellulitis. He is has no limited range of motion. No evidence of a necrotizing infection.) - Neuro Neuro: Alert and oriented X 3, Normal speech Results - Vitals Vitals: Vital Signs - 24 hr 08/27/23 14:47 Temperature 36.7 C Heart Rate 97 Respiratory 20 Rate Blood Pressure 185/99 H O2 Saturation 100 Oxygen O2 Source Room air PD Medical Decision Making - ED course ED course: Sutures were removed and a culture obtained. The hand was redressed and it was lightly debrided. Will add doxycycline, he already started Keflex earlier today. Departure - Departure Disposition: Home, Self Care Clinical Impression: Wound cellulitis Condition: Good Record reviewed to determine appropriate education?: Yes Instructions: Cellulitis Dc Prescriptions: Doxycycline [Vibramycin] 100 mg PO BID #20 tablet Comments: I sent the prescription electronically to [facility] for a second antibiotic. I do think you should do both the cephalexin as well as the doxycycline. Return on Wednesday for wound check and wound care. We are performing a wound culture, the results should be done in 48-72 hours. If antibiotic change is necessary we will call you. Return if worse in the meantime, especially if you develop increased pain, fevers, cannot keep down the medication.
[2023-08-27] MEDS: DOXYCYCLINE 100 MG TABLET PO STA (15:16)
[2023-08-27 15:35] VITALS: BP 172/86
== END 2023-08-27 15:27 | disposition home or self-care (01) ==
LOC: ED 14:35
DX: S61.412D Laceration without foreign body of left hand, subsequent encounter (principal); L03.114 Cellulitis of left upper limb; W18.39XD Other fall on same level, subsequent encounter; I25.10 Atherosclerotic heart disease of native coronary artery without angina pectoris; N40.0 Benign prostatic hyperplasia without lower urinary tract symptoms; Z86.010 Personal history of colon polyps; Z95.1 Presence of aortocoronary bypass graft; Z79.899 Other long term (current) drug therapy
CPT/HCPCS: 87070; 87205; 99283; A9270

== ENCOUNTER 2023-08-29 09:22 | Emergency (ER) | payer MEDICARE, OTHER ==
--- NOTE | 2023-08-29 10:16 | ED Physician Documentation ---
PD HPI SKIN - Stated complaint Stated Complaint: WOUND CHECK - Chief complaint Chief Complaint: Wound - History obtained from History obtained from: Patient - Additional information Additional information: The patient returns to the emergency department for recheck of left hand wound. He had been seen initially for a fall and hand laceration which was sutured. However, a couple of days ago, he was seen again because he was noticing drainage and wound dehiscence. Sutures were removed at that time and the patient was started on antibiotics. He has been wearing his dressing since and denies any obvious new drainage. No spreading of erythema or onset of swelling. No fevers or chills. Patient states he is doing well. PD PAST MEDICAL HISTORY - Past Medical History Past Medical History: Yes Cardiovascular: Coronary artery disease Respiratory: None Endocrine/Autoimmune: None GI: Colon polyps : Benign prostate hypertrophy Derm: None - Past Surgical History Past Surgical History: Yes General: Appendectomy Ortho: Rotator cuff repair, Arthroscopic surgery Cardiovascular: CABG, Coronary stent - Present Medications Home Medications: Ambulatory Orders Medication Instructions Recorded Confirmed Clopidogrel [Plavix] 1 tab PO DAILY 08/09/17 08/29/23 Ezetimibe [Zetia] 1 tab PO DAILY 08/09/17 08/29/23 Finasteride 1 tab PO DAILY 08/09/17 08/29/23 Metoprolol Succinate [Toprol Xl] 1 tab PO DAILY 08/09/17 08/29/23 Pravastatin Sodium 1 tab PO DAILY 08/09/17 08/29/23 Tamsulosin [Flomax] 1 cap PO DAILY 08/09/17 08/29/23 Bacitracin Zinc 1 applic TOP DAILY #28.4 gm 08/17/23 08/29/23 Ofloxacin 0.3% Ophth Drops 2 drops EACHEYE QID #5 ml 08/17/23 08/29/23 [Ocuflox 0.3% Ophth Drops] cephALEXin [Keflex] 500 mg PO Q6H 3 Days #12 cap 08/17/23 08/29/23 Doxycycline [Vibramycin] 100 mg PO BID #20 tablet 08/27/23 08/29/23 - Allergies Allergies/Adverse Reactions: Allergies Allergy/AdvReac Type Severity Reaction Status Date / Time No Known Drug Allergies Allergy Verified 08/29/23 09:31 - Social History Does the pt smoke?: No Smoking Status: Never smoker Does the pt drink ETOH?: Yes Does the pt have substance abuse?: No - Immunizations Immunizations are current?: Yes Immunizations: TDAP >10years/unknown - POLST Patient has POLST: No PD ED PE NORMAL - Vitals Vital signs reviewed: Yes - General General: Alert and oriented X 3, No acute distress - HEENT HEENT: Atraumatic, EOMI, Moist mucous membranes - Neck Neck: Supple, no meningeal sign - Cardiac Cardiac: Strong equal pulses - Respiratory Respiratory: No respiratory distress - Derm Derm: Warm and dry, Other (Brownish-purple discoloration of the dorsum of Left hand, identical to left hand, with chronic appearance. No intense erythema or edema. No spread of discoloration up into the forearm. Wound is still moist but without drainage. Good tissue approximation.) - Extremities Extremities: No deformity, No edema - Neuro Neuro: Alert and oriented X 3, No motor deficit, No sensory deficit - Psych Psych: Normal mood, Normal affect Results - Vitals Vitals: Vital Signs - 24 hr 08/29/23 09:29 Temperature 36.4 C L Heart Rate 73 Respiratory 20 Rate Blood Pressure 154/71 H O2 Saturation 100 Oxygen O2 Source Room air PD Medical Decision Making - ED course Complexity details: considered differential, d/w patient ED course: I discussed with the patient that his wound and hand actually look quite good. We have discussed that he would probably benefit from leaving the wound open to air during the day when he can. We have dressed it up with bacitracin and iodoform gauze for now. We have discussed finishing the course of antibiotics and the usual indications for follow-up and return. Departure - Departure Disposition: 01 Home, Self Care Clinical Impression: Visit for wound check, Wound cellulitis Condition: Stable Instructions: ED Wound Check Laceration FU Infec Comments: Your hand actually looks quite good and your wound is healing appropriately. There is no evidence of spread of infection and the color is actually fairly symmetrical between your 2 hands. At this point in time, you should plan to continue your course of antibiotics until the course is complete. As far as dressing the wound, it would probably be beneficial for you to leave the wound open to air whenever possible, to let it start drying out and let the scab set up. You may still apply antibiotic ointment, however. If you are in a situation where you could possibly "catch" the wound on something or if there could potentially be friction on the wound, such as when you are sleeping at night, then it would be good to put a gauze dressing over the area until the scab sets up. Unless the wound seems to be getting worse or you have other concerns, there is no need for another wound check. Please follow-up with your primary care physician as needed.
[2023-08-29] MEDS: BACITRACIN ZINC OINT 1 PACKET TOP STA (10:22)
[2023-08-29 11:08] VITALS: BP 145/88; O2SAT 96
== END 2023-08-29 11:04 | disposition home or self-care (01) ==
LOC: ED 09:22
DX: S61.412D Laceration without foreign body of left hand, subsequent encounter (principal); L03.114 Cellulitis of left upper limb; W18.39XD Other fall on same level, subsequent encounter; I25.10 Atherosclerotic heart disease of native coronary artery without angina pectoris; N40.0 Benign prostatic hyperplasia without lower urinary tract symptoms; Z86.010 Personal history of colon polyps; Z95.1 Presence of aortocoronary bypass graft; Z79.01 Long term (current) use of anticoagulants; Z79.899 Other long term (current) drug therapy
CPT/HCPCS: 99282; 99283; A9270

== ENCOUNTER 2023-09-01 11:23 | Emergency (ER) | payer MEDICARE, OTHER ==
--- NOTE | 2023-09-01 11:56 | ED Physician Documentation ---
History of Present Illness - Stated complaint Stated Complaint: LT HAND WOUND - Chief complaint Chief Complaint: General - History obtained from History obtained from: Patient - Additonal information Additional information: 83-year-old gentleman fell and injured his left hand. Sutures were placed and he developed a wound infection. He was seen initially by me 4 days ago and a culture was done which is no growth at this point, sutures removed and he was put on doxycycline, he had already been put on Keflex by the clinic. He returns with concerns for wound infection with some cellulitis in the proximal second finger of the left hand. No fevers. PD PAST MEDICAL HISTORY - Past Medical History Past Medical History: Yes Cardiovascular: Coronary artery disease Respiratory: None Endocrine/Autoimmune: None GI: Colon polyps : Benign prostate hypertrophy Derm: None - Past Surgical History Past Surgical History: Yes General: Appendectomy Ortho: Rotator cuff repair, Arthroscopic surgery Cardiovascular: CABG, Coronary stent - Present Medications Home Medications: Ambulatory Orders Medication Instructions Recorded Confirmed Clopidogrel [Plavix] 1 tab PO DAILY 08/09/17 09/01/23 Ezetimibe [Zetia] 1 tab PO DAILY 08/09/17 09/01/23 Finasteride 1 tab PO DAILY 08/09/17 09/01/23 Bacitracin Zinc 1 applic TOP DAILY #28.4 gm 08/17/23 09/01/23 Doxycycline [Vibramycin] 100 mg PO BID #20 tablet 08/27/23 09/01/23 Amlodipine Besylate [Norvasc] 2.5 mg PO DAILY 09/01/23 09/01/23 Linezolid [Zyvox] 600 mg PO BID #14 tablet 09/01/23 Rosuvastatin Calcium [Crestor] 40 mg PO DAILY 09/01/23 09/01/23 Valsartan 160 mg ORAL DAILY 09/01/23 09/01/23 cephALEXin [Keflex] 500 mg PO Q6H #20 cap 09/01/23 cephALEXin [Keflex] 500 mg PO TID 09/01/23 09/01/23 - Allergies Allergies/Adverse Reactions: Allergies Allergy/AdvReac Type Severity Reaction Status Date / Time No Known Drug Allergies Allergy Verified 09/01/23 11:38 - Social History Does the pt smoke?: No Smoking Status: Never smoker Does the pt drink ETOH?: Yes Does the pt have substance abuse?: No - Immunizations Immunizations are current?: Yes Immunizations: TDAP >10years/unknown - POLST Patient has POLST: No PD ED PE NORMAL - Vitals Vital signs reviewed: Yes - General General: Alert and oriented X 3, No acute distress - Extremities Extremities: Other (The wound on the dorsum of the left hand is extensive but healing well with some dehiscence with granulation at the base. There is mild cellulitis in the proximal part of the second finger. No purulence, but the wound bed was cultured again.) - Neuro Neuro: Alert and oriented X 3, Normal speech Results - Vitals Vitals: Vital Signs - 24 hr 09/01/23 11:38 Temperature 36.6 C Heart Rate 97 Respiratory 16 Rate Blood Pressure 169/102 H O2 Saturation 100 Oxygen O2 Source Room air PD Medical Decision Making - ED course ED course: 83-year-old gentleman with a wound infection on Keflex and doxycycline. I note today, he has brought his meds with him, the clinic only put him on the Keflex 3 times daily. Will encourage him to take it 4 times daily instead and he will need a few more days worth. I wanted to give him a second agent with MRSA coverage given that he is failing to improve on the doxycycline initially chose Bactrim but that interacts with his valsartan so we will do linezolid instead. Departure - Departure Disposition: 01 Home, Self Care Clinical Impression: Wound cellulitis Condition: Good Record reviewed to determine appropriate education?: Yes Prescriptions: cephALEXin [Keflex] 500 mg PO Q6H #20 cap Linezolid [Zyvox] 600 mg PO BID #14 tablet Comments: Continue your current care except you are going to take the Keflex/cephalexin 4 times a day instead of 3. Wrote a prescription to stretch it for a few more days. Also putting you on a second agent, linezolid. I sent both of these prescriptions to the [facility] in [place]. Return again on Wednesday if not i mproving or anytime if worse. The initial culture done 4 days ago did not grow anything but we are repeating it today in case it can give us some useful data should you continue to not improve. Forms: PCP List
[2023-09-01] MEDS: LIDOCAINE 1% 2 ML VIAL MC ONE (12:32)
[2023-09-01] MEDS: cefTRIAXone 1 GM VIAL IM STA (12:32)
[2023-09-01] MEDS: SULFAMETH/TRIMETH DS 800/160 MG TABLET PO STA (12:32)
[2023-09-01 13:03] VITALS: BP 166/76; O2SAT 99
== END 2023-09-01 12:53 | disposition home or self-care (01) ==
LOC: ED 11:23
DX: L03.114 Cellulitis of left upper limb (principal); I25.10 Atherosclerotic heart disease of native coronary artery without angina pectoris; N40.0 Benign prostatic hyperplasia without lower urinary tract symptoms; Z95.1 Presence of aortocoronary bypass graft; Z86.010 Personal history of colon polyps; Z79.02 Long term (current) use of antithrombotics/antiplatelets; Z79.899 Other long term (current) drug therapy
CPT/HCPCS: 87070; 87205; 96372; 99283

== ENCOUNTER 2023-09-03 10:25 | Emergency (ER) | payer MEDICARE, OTHER ==
[2023-09-03 10:36] VITALS: BP 150/60; O2SAT 100
--- NOTE | 2023-09-03 11:41 | ED Physician Documentation ---
PD HPI WOUND RECHECK - Stated complaint Stated Complaint: WOUND OOZING/THROBBING - Chief complaint Chief Complaint: Wound - Histroy obtained from History obtained from: Patient (He returns for a wound check, he was seen 2 days ago. The culture grew coag negative staph. He does feel improved since then, but has a little bit of drainage from the wound today which she was worried about. Still no fevers. No significant pain.) PD PAST MEDICAL HISTORY - Past Medical History Past Medical History: Yes Cardiovascular: Coronary artery disease Respiratory: None Endocrine/Autoimmune: None GI: Colon polyps : Benign prostate hypertrophy Derm: None - Past Surgical History Past Surgical History: Yes General: Appendectomy Ortho: Rotator cuff repair, Arthroscopic surgery Cardiovascular: CABG, Coronary stent - Present Medications Home Medications: Ambulatory Orders Medication Instructions Recorded Confirmed Clopidogrel [Plavix] 1 tab PO DAILY 08/09/17 09/01/23 Ezetimibe [Zetia] 1 tab PO DAILY 08/09/17 09/01/23 Finasteride 1 tab PO DAILY 08/09/17 09/01/23 Bacitracin Zinc 1 applic TOP DAILY #28.4 gm 08/17/23 09/01/23 Doxycycline [Vibramycin] 100 mg PO BID #20 tablet 08/27/23 09/01/23 Amlodipine Besylate [Norvasc] 2.5 mg PO DAILY 09/01/23 09/01/23 Linezolid [Zyvox] 600 mg PO BID #14 tablet 09/01/23 Rosuvastatin Calcium [Crestor] 40 mg PO DAILY 09/01/23 09/01/23 Valsartan 160 mg ORAL DAILY 09/01/23 09/01/23 cephALEXin [Keflex] 500 mg PO Q6H #20 cap 09/01/23 cephALEXin [Keflex] 500 mg PO TID 09/01/23 09/01/23 Mupirocin 2% Oint [Bactroban 2% 1 applic TOP BID #50 gm 09/03/23 Oint] - Allergies Allergies/Adverse Reactions: Allergies Allergy/AdvReac Type Severity Reaction Status Date / Time No Known Drug Allergies Allergy Verified 09/03/23 10:29 - Social History Does the pt smoke?: No Smoking Status: Never smoker Does the pt drink ETOH?: Yes Does the pt have substance abuse?: No - Immunizations Immunizations are current?: Yes Immunizations: TDAP >10years/unknown - POLST Patient has POLST: No PD ED PE NORMAL - Vitals Vital signs reviewed: Yes - General General: Alert and oriented X 3, No acute distress - Extremities Extremities: Other (Significantly improving appearance of cellulitis in the wounds of the dorsum of the left hand with better range of motion than 2 days ago.) - Neuro Neuro: Alert and oriented X 3, Normal speech Results - Vitals Vitals: Vital Signs - 24 hr 09/03/23 10:29 Temperature 36.8 C Heart Rate 73 Respiratory 16 Rate Blood Pressure 150/60 H O2 Saturation 100 Oxygen O2 Source Room air PD Medical Decision Making - ED course ED course: Coag negative staph wound infection now improving on cephalexin and linezolid. Will add topical mupirocin that he does appear to improving. Departure - Departure Disposition: 01 Home, Self Care Clinical Impression: Wound cellulitis Condition: Good Record reviewed to determine appropriate education?: Yes Instructions: ED Infec Skin Cellulitis Prescriptions: Mupirocin 2% Oint [Bactroban 2% Oint] 1 applic TOP BID #50 gm Comments: I sent your prescription electronically to [facility] in [place]. As discussed, the prior culture from 2 days ago grew coag negative staph. Both antibiotics you are currently on should be effective against that agent and I am adding a topical agent that should be effective against it as well. Otherwise I do think you are improving. Return as needed if worsening.
== END 2023-09-03 11:46 | disposition home or self-care (01) ==
LOC: ED 10:25
DX: T81.49XA Infection following a procedure, other surgical site, initial encounter (principal); L03.114 Cellulitis of left upper limb; I25.10 Atherosclerotic heart disease of native coronary artery without angina pectoris; N40.0 Benign prostatic hyperplasia without lower urinary tract symptoms; Z86.010 Personal history of colon polyps; Z95.1 Presence of aortocoronary bypass graft; Z79.02 Long term (current) use of antithrombotics/antiplatelets; Z79.899 Other long term (current) drug therapy
CPT/HCPCS: 99282; 99283

== ENCOUNTER 2023-09-26 00:56 | Outpatient (CLI) | payer MEDICARE, OTHER | END 2023-09-26 23:59 | disposition critical access hospital (66) | LOC: EMS 00:56 | DX: R06.02 Shortness of breath (principal); R05.9 Cough, unspecified | CPT/HCPCS: A0425; A0427 ==

== ENCOUNTER 2023-10-11 09:03 | Emergency (ER) | payer MEDICARE, OTHER ==
[2023-10-11 09:20] VITALS: BP 147/73; O2SAT 97
--- NOTE | 2023-10-11 09:36 | ED Physician Documentation ---
PD HPI WOUND RECHECK - Stated complaint Stated Complaint: LT HAND PX - Chief complaint Chief Complaint: Wound - Histroy obtained from History obtained from: Patient - Additional information Additional information: Patient is an 83-year-old male presenting for evaluation of area of paresthesia to his left hand. Patient had a fall in August and sustained a laceration to the left hand that subsequently became infected. Patient did complete antibiotics over a month ago. He denies any new redness, swelling or pain but has noted an area of numbness to the wound and was concerned as this has not improved. Review of Systems Constitutional: denies: Fever Skin: denies: Rash PD PAST MEDICAL HISTORY - Past Medical History Past Medical History: Yes Cardiovascular: Hypertension, High cholesterol Respiratory: COPD Endocrine/Autoimmune: None GI: Colon polyps : Benign prostate hypertrophy Derm: None - Past Surgical History Past Surgical History: Yes General: Appendectomy Ortho: Rotator cuff repair, Arthroscopic surgery Cardiovascular: CABG, Coronary stent - Present Medications Home Medications: Ambulatory Orders Medication Instructions Recorded Confirmed Clopidogrel [Plavix] 1 tab PO DAILY 08/09/17 09/26/23 Ezetimibe [Zetia] 1 tab PO DAILY 08/09/17 09/26/23 Finasteride 1 tab PO DAILY 08/09/17 09/26/23 Amlodipine Besylate [Norvasc] 2.5 mg PO DAILY 09/01/23 09/26/23 Rosuvastatin Calcium [Crestor] 40 mg PO DAILY 09/01/23 09/26/23 Valsartan 160 mg ORAL DAILY 09/01/23 09/26/23 Albuterol 2.5 mg INH Q4H PRN #30 ml 09/26/23 Albuterol Sulfate [Proair 90 mcg IH Q4HR PRN 09/26/23 09/26/23 Digihaler] Azithromycin [Zithromax] 250 mg PO UD 09/26/23 09/26/23 Ipratropium [Atrovent] 0.5 mg INH RTQ6H PRN #20 ml 09/26/23 Nebulizer and Compressor 1 each MC Q4HR PRN #1 ea 09/26/23 [Compressor Nebulizer System] predniSONE [Deltasone] 40 mg PO DAILY 4 Days #8 tablet 09/26/23 - Allergies Allergies/Adverse Reactions: Allergies Allergy/AdvReac Type Severity Reaction Status Date / Time No Known Drug Allergies Allergy Verified 10/11/23 09:12 - Social History Does the pt smoke?: No Smoking Status: Never smoker Does the pt drink ETOH?: Yes Does the pt have substance abuse?: No - Immunizations Immunizations are current?: Yes Immunizations: TDAP >10years/unknown - POLST Patient has POLST: No PD ED PE NORMAL - General General: Alert and oriented X 3, No acute distress, Well developed/nourished - HEENT HEENT: Atraumatic - Cardiac Cardiac: Strong equal pulses - Respiratory Respiratory: No respiratory distress - Extremities Extremities: Other (Well-healed laceration to dorsum of left hand with good range of motion of digits, no erythema, swelling or tenderness on palpation, has a 1 cm area where he reports numbness.) Results - Vitals Vitals: Vital Signs - 24 hr 10/11/23 09:08 Temperature 36.4 C L Heart Rate 68 Respiratory 20 Rate Blood Pressure 147/73 H O2 Saturation 97 Oxygen O2 Source Room air PD Medical Decision Making - ED course ED course: Patient presenting for evaluation of numbness to his left hand. Numbness is isolated to a small area around where he sustained a laceration 2 months ago and subsequently developed an infection. At this time I see no signs of an infection and patient denies having noted any abnormal drainage, redness, swelling to the area. There is no pain.Patient advised on concerning symptoms to return for. Departure - Departure Disposition: 01 Home, Self Care Clinical Impression: Visit for wound check, Hand paresthesia Condition: Stable Follow-Up: Keshav Ortiz MD [Provider Admit Priv/Credential] - As Needed Comments: At this time I do not see signs of an infection to the wound in your left hand. The numbness around a certain portion of the hand may be related to the trauma and can take some time for that numbness to go away. Please have close follow- up with your primary care doctor and return to the ER if you notice any worsening symptoms such as redness, swelling, pain. I have also included information for local orthopedic Surgeon. Forms: PCP List Discharge Date/Time: 10/11/23 09:45
== END 2023-10-11 09:45 | disposition home or self-care (01) ==
LOC: ED 09:03
DX: R20.0 Anesthesia of skin (principal); I10 Essential (primary) hypertension; E78.00 Pure hypercholesterolemia, unspecified; J44.9 Chronic obstructive pulmonary disease, unspecified; N40.0 Benign prostatic hyperplasia without lower urinary tract symptoms; Z86.010 Personal history of colon polyps; I25.10 Atherosclerotic heart disease of native coronary artery without angina pectoris; Z95.1 Presence of aortocoronary bypass graft; Z79.02 Long term (current) use of antithrombotics/antiplatelets; Z79.899 Other long term (current) drug therapy
CPT/HCPCS: 99282; 99283